=== PATIENT | female | born 1970 | race Caucasian/White ===

== ENCOUNTER 2024-11-25 21:28 | Outpatient (CLI) | payer OTHER, SELFPAY | END 2024-11-25 21:29 | disposition home or self-care (01) | LOC: AMB 11-28 15:51 | PROVIDERS: Visit Provider Emergency Medicine | DX: R55 Syncope and collapse (principal); S09.90XA Unspecified injury of head, initial encounter; W18.39XA Other fall on same level, initial encounter; Y92.89 Other specified places as the place of occurrence of the external cause | CPT/HCPCS: A0425; A0429 ==

== ENCOUNTER 2024-11-25 21:55 | Emergency (ER) | payer OTHER, SELFPAY ==
--- OUTSIDE RECORDS SUMMARY | 2021-02-11 23:30 | XMS_ITS | Continuity of Care Document ---
Author Organization [facility] Address [address] [address] [place] [address] Phone Care Team Providers Care Brick Paver Name Role Phone No Information Unavailable Unavailable Advance Directives Directive Yes / No Effective Date File Name No Information Encounters Encounter Description Practice Location Reason(s) For Visit Diagnoses Date Provider Providers Copied on Encounter [facility], [address] [address], [place], [place], [id number], [place] tel:[phone] No Information No Information Family History Family Member Type Diagnosis Age At Onset No Information Payers Payer name Insurance type Covered libertarian ID Authoriza tion(s) No Information Social History Type Description Quantity Date Captured Comments Sex Female Smoking Status No Information Chief Complaint And Reason For Visit No Information Reason For Referral Reason For Referral No Information History Of Present Illness Encounter Date Complaint History Of Prese nt Illness No Information Functional Status Date Functional Assessmen t No Information Instructions Date Instruction Additional Infor mation No Information Assessments Type Assessment Date No Information Patient Care Teams Name Effective Dates (start - stop) Status Members No Information
--- OUTSIDE RECORDS SUMMARY | 2021-02-11 23:30 | XMS_ITS | Continuity of Care Document ---
Author Organization [facility] Address [address] [address] [place] [address] Phone Care Team Providers Care Corrections Cadet Name Role Phone No Information Unavailable Unavailable Advance Directives Directive Yes / No Effective Date File Name No Information Encounters Encounter Description Practice Location Reason(s) For Visit Diagnoses Date Provider Providers Copied on Encounter [facility], [address] [address], [place], [place], [id number], [place] tel:[phone] No Information No Information Family History Family Member Type Diagnosis Age At Onset No Information Payers Payer name Insurance type Covered alliance party ID Authoriza tion(s) No Information Social History [...]
--- OUTSIDE RECORDS SUMMARY | 2024-11-25 21:56 | XMS_ITS | Clinical Summary ---
Author Organization [facility] Address [address] [place] [address] Care Team Providers Care Echocardiologist Name Role Phone Gopi Giraldo MD Primary Care Provider [phone] Allergies No known active allergies Medications tiZANidine (ZANAFLEX) 2 MG tablet Take 2 mg by mouth every 6 hours as needed for muscle spasms Active B Complex Vitamins (B-COMPLEX/B-12 PO) Take 1 tablet by mouth daily Active B Bjxpgud-U-Aucqn n-D-Zinc-FA (VITAL-D RX PO) Take 1 tablet by mouth daily Active BL MAGNESIUM CITRATE PO Take 1 capsule by mouth daily Active HYDROcodone-richard taminophen (NORCO) 5-325 MG tabletIndicatio ns:Postoperativ e pain Take 1 tablet by mouth every 4 hours as needed for moderate to severe pain 10 tablet 06/18/2022 Active senna-docusate (SENOKOT-S/MARK COLACE) 8.6-50 MG tabletIndicatio ns:Postoperativ e pain Take 1-2 tablets by mouth 2 times daily 20 tablet 06/18/2022 Active Active Problems Problem Noted Date Diagnosed Date Incarcerated left inguinal hernia 2022 Social History Tobacco Use Types Packs/Day Years Used Date Smoking Tobacco: Never Smokeless Tobacco: Never Alcohol Use Standard Drinks/Week Comments Yes 0 (1 standard drink = 0.6 oz pur e alcohol) Adolescent Education Answer Date Record ed Getting School Help Needed Not on file 11/22 Comments No Sex and Gender Information Value Date Recorded Sex Assigned at Not on file 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 Gender Identity Not on file Sexual Orientation Not on file Last Filed Vital Signs Vital Sign Reading Time Taken Comments Blood Pressure 115/80 06/18/2022 7:15 PM CDT Pulse 80 06/18/2022 7:15 PM CDT Temperature 36.1 C (97 F) 06/18/2022 7:15 PM CDT Respiratory Rate 14 06/18/2022 7:15 PM CDT Oxygen Saturation 96% 06/18/2022 7:15 PM CDT Inhaled Oxygen Concentration - - Weight 55.8 kg (123 lb 1.6 oz) 06/18/2022 11:30 AM CDT Height 175.3 cm (5' 9) 06/18/2022 11:30 AM CDT Body Mass Index 18.18 06/18/2022 11:30 AM CDT Plan of Treatment Health Maintenance Due Date Last Done Comments ADVANCE CARE PLANNING 1971 ANNUAL REVIEW OF HM ORDERS 1971 CT COLONOGRAPHY 1971 DIABETES SCREENING 1971 FIT 1971 FLEX SIG 1971 MAMMO SCREENING 1971 sDNA (Cologuard) 1971 YEARLY PREVENTIVE VISIT 06/10/1974 COLONOSCOPY 06/10/1981 COLORECTAL CANCER SCREENING 06/10/1981 HIV SCREENING 06/10/1986 HEPATITIS C SCREENING 06/10/1989 HEPATITIS B VACCINE (1 of 3 - + 3-dose series) 06/10/1990 PAP 06/10/1992 LIPID 2011 PNEUMOCOCCAL VACCINE 50+ YEARS (1 of 1 - PCV) 06/10/2021 ZOSTER VACCINE (1 of 2) 06/10/2021 PHQ-2 (once per calendar year) 2024 COVID-19 VACCINE (4 - 2024-2 6 season) 2024 01/09/2021, 04/19/2020, 03/22/2020 INFLUENZA VACCINE (#1) 2024 01/09/2009 DTAP/TDAP/TD VACCINE (2 - Td or Tdap) 07/21/2026 07/21/2016 HPV VACCINE (No Doses Required) Completed MENINGITIS VACCINE Aged Out No longer eligible based on patient's age to complete this topic Medical Devices Implanted Type Area Financial Representative Device Identifier Shelf Expiration Date Model / Serial / Lot Mesh Progrip Laparoscopic 5.9x3.9 Parietex Self-Fix [id number] - [id number] Implanted:Qty: 1 on 06/18/2022 by Charan Hamilton MD at [facility] Mesh Left: Iliac/Fem orals COVIDIEN 03/24/2025 [id number] / / [id number] Mesh Progrip Laparoscopic 5.9x3.9 Parietex Self-Fix [id number] - [id number] Implanted:Qty: 1 on 06/18/2022 by Charan Hamilton MD at [facility] Mesh Right: Iliac/Fem orals COVIDIEN 03/24/2025 [id number] / / [id number] Insurance [facility] [place] [id number] [facility] Care Teams Echocardiologist Relationship Specialty Start Date End Date Gopi Giraldo MD [address] [address] PCP - General estimator printing plate making 06/10/22
--- OUTSIDE RECORDS SUMMARY | 2024-11-25 21:56 | XMS_ITS | Clinical Summary ---
Author Organization [facility] Address [address] [place] [address] Care Team Providers Care Weigh Boss Name Role Phone Pcp, No Primary Care Provider Unavailabl e Allergies No known active allergies Medications tiZANidine (ZANAFLEX) 2 mg tabletIndication s:Cervical somatic dysfunction Take 1 tablet by mouth every 6 hours if needed for Muscle Spasm. 12 tablet 06/20/2018 Active Active Problems No known active problems Immunizations Immunization Administration Dates Next Due Tdap 07/21/2016 Family History Medical History Relation Name Comments Cancer-breast Paternal Aunt Cancer-colon Paternal Grandmother Cancer-ovarian No Family History Relation Name Status Comments Father Alive Mother Alive Paternal Aunt Paternal Grandmother Social History Tobacco Use Types Packs/Day Years Used Date Smoking Tobacco: Never Smokeless Tobacco: Never Tobacco Cessation:Counseling Given: No Alcohol Use Standard Drinks/Week Comments Yes 0 (1 standard drink = 0.6 oz pur e alcohol) PHQ-2 Answer Date Recorded PHQ-2 Score 0 06/20/2018 Social Connections Answer Date Recorded Frequency of Communication with Friends and Fami ly Not on file 06/17/2023 Financial Resource Strain Answer Date R ecorded Difficulty of Paying Living Expenses 3 06/15/2022 Difficulty of Paying Living Expenses Not on file 06/15/2022 Food Insecurity Answer Date Recorded Worried About Running Out of Food in the Last Ye ar 1 06/15/2022 Transportation Needs Answer Date Record ed Lack of Transportation (Medical) 1 06/15/2022 Housing Stability Answer Date Recorded Unable to Pay for Housing in the Last Year 1 06/15/2022 Comments No Sex and Gender Information Value Date Recorded Sex Assigned at Not on file 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 Gender Identity Not on file Sexual Orientation Not on file Obstetrics History Last Filed Vital Signs Vital Sign Reading Time Taken Comments Blood Pressure 124/72 06/15/2022 2:57 PM CDT Pulse 69 06/15/2022 2:57 PM CDT Temperature 37.3 C (99.1 F) 06/01/2018 1:22 PM CDT Respiratory Rate - - Oxygen Saturation 99% 06/15/2022 2:57 PM CDT Inhaled Oxygen Concentration - - Weight 57.2 kg (126 lb 1.6 oz) 06/15/2022 2:57 P M CDT Height 172.8 cm (5' 8.03) 06/15/2022 2:57 PM CD T Body Mass Index 19.16 06/15/2022 2:57 PM CDT Plan of Treatment Health Maintenance Due Date Last Done Comments HIV for age 15-65 06/10/1986 Hepatitis C screening for ag e 18-79 06/10/1989 Hepatitis B series for 19+ ( 1 of 3 - 19+ 3-dose series) 06/10/1990 Pap test for age 21-65 06/10/1992 Colonoscopy through age 75 06/10/2016 Lipids for age 45-75 06/10/2016 Mammogram for age 45-75 06/10/2016 Depression screening for age 12+ 06/21/2019 06/21/19 19, 07/07/2016 Pneumococcal series for age 50+ (1 of 1 - PCV) 06/10/2021 Zoster (shingles) series for age 50+ (1 of 2) 06/10/2021 BMI (ht and wt on same day) for age 18+ 06/16/2023 06/15/2022, 06/20/2018, 06/01/2018, Additional history exists COVID-19 vaccine series ( - 2023- season) 2024 Influenza Vaccine (#1) 2024 Tetanus booster 07/21/2026 07/21/2016 RSV vaccine for adults or (1 - 1-dose 75+ series) 06/10/2046 Care Teams Weigh Boss Relationship Specialty Start Date End Date Pcp, No . PCP - General 06/30/16
[2024-11-25 21:59] VITALS: BP 126/83; PULSE 82; RESP 18; TEMP 36.8; O2SAT 99; BMI 18.5
--- NOTE | 2024-11-25 22:05 | ED_ITS ---
HPI - Syncope General Time Seen by Provider: 22:05 Date Seen: 11/25/24 Chief Complaint: Syncope/Fainted Stated Complaint: syncope Time Seen by Provider: 11/25/24 22:04 Source: patient Mode of arrival: EMS History of Present Illness HPI narrative: Drea is a 54-year-old female who presents to the emergency department by EMS for evaluation of syncope. Patient reports that she was at a wedding tonight when she was talking to a friend when suddenly she started feeling very hot, had spotty vision, and felt as if she was going to pass out. Patient reports that she was going to sit down however the next thing she knew she landed on the ground. Per EMS patient did hit her head, did lose consciousness for a few seconds however then came back to it immediately. Patient reports that she is feeling back to normal now. states that earlier she was pale. No history of prior syncopal episodes in the past. Patient denies any headache, neck pain, back pain, chest pain, shortness of breath, abdominal pain, lower extremity edema or calf tenderness, no weakness, no paresthesias. Patient states she did have a long day today, went for a run for the 1st time in 6 months to a year, went to a , and then was at a wedding. Patient states she did have a glass a wine and an Old Fashion cocktail. Denies any history of heart problems, strokes, blood clots. Blood glucose prior to arrival was normal per EMS. Related Data Home Medications ?Medication ?Instructions ?Recorded ?Confirmed No Known Home Medications 11/26/2407/16 Allergies Allergy/AdvReac Type Severity Reaction Status Date / Time No Known Drug Allergies Allergy Verified 11/26/24 00:38 Review of Systems Narrative: Past medical history, past surgical history, medications, allergies, family history, and social history were reviewed with the patient. No additional pertinent items. A medically appropriate review of systems was performed with pertinent positives and negatives noted in HPI, all other systems negative. [facility] Medical History (Updated 11/26/24 @ 00:32 by Gabby Dumas MD) No significant past medical history Surgical History (Updated 11/25/24 @ 22:11 by Sanjay Farrar RN) No significant past surgical history Social History Smoking Status: Never smoker Second hand tobacco smoke exposure: No How often do you have a drink containing alcohol: monthly or less AUDIT-C Alcohol total score: 1 Non-prescribed substance use: denies use Exam Narrative: Exam Narrative: General: Afebrile, no acute distress HEENT: Normocephalic, atraumatic, conjunctiva normal. MMM Neck: non-tender, supple Cardio: regular rate. regular rhythm Resp: Normal work of breathing, no respiratory distress, lungs clear bilaterally, no wheezing, rhonchi, rales Chest/Back: no visual signs of trauma, no midline tenderness, no CVA tenderness Abdomen: soft, non distension, no tenderness, no peritoneal signs Neuro: alert and fully oriented. CN II-XII grossly intact. Grossly normal strength and sensation in all extremities. MSK: no deformities. Normal range of motion Integumentary/Skin: no rash visualized, normal color Psych: normal affect, normal behavior Const: Vital Signs, click to edit/add: Vital Signs - 24 hr 11/25/24 21:59 11/25/24 22:30 11/25/24 23:20 Temperature 98.2 F 98.2 F Pulse Rate [Right Pulse Oximeter] 82 78 Respiratory Rate 18 18 Blood Pressure [Le ft Upper Arm] 126/83 130/74 Pulse Oximetry 99 99 99 Oxygen Delivery Me thod Room Air Room Air 11/26/24 00:37 11/26/24 00:38 Temperature 98.2 F 98.2 F Pulse Rate [Right Pulse Oximeter] 74 74 Respiratory Rate 18 18 Blood Pressure [Le ft Upper Arm] 127/74 127/74 Pulse Oximetry 99 Oxygen Delivery Me thod Room Air Course Vital Signs Vital signs: Initial Vital Signs Temperature 98.2 F 11/25/24 21:59 Temperature Source Temporal Artery Scan 11/25/24 21:59 Pulse Rate 82 11/25/24 21:59 Respiratory Rate 18 11/25/24 21:59 Blood Pressure 126/83 11/25/24 21:59 Blood Pressure Mean 97 11/25/24 21:59 Blood Pressure Position Sitting 11/25/24 21:59 Pulse Oximetry 99 11/25/24 21:59 Oxygen Delivery Method Room Air 11/25/24 21:59 Vital Signs Temperature 98.2 F 11/25/24 21:59 Pulse Rate 82 11/25/24 21:59 Respiratory Rate 18 11/25/24 21:59 Blood Pressure 126/83 11/25/24 21:59 Pulse Oximetry 99 11/25/24 21:59 Oxygen Delivery Method Room Air 11/25/24 21:59 Temperature 98.2 F 11/26/24 00:38 Pulse Rate 74 11/26/24 00:38 Respiratory Rate 18 11/26/24 00:38 Blood Pressure 127/74 11/26/24 00:38 Pulse Oximetry 99 11/26/24 00:37 Oxygen Delivery Method Room Air 11/26/24 00:37 Medications Administered Medications: Discontinued Medications Generic Name Dose Route Start Last Admin Trade Name Cat PRN Reason Stop Dose Admin Sodium Chloride 1,000 mls @ 1,000 mls/hr 11/25/24 22:30 11/25/24 23:28 0.9 % Sodium Chloride 1000 Ml IV 11/25/24 23:29 Infused .Q1H RONI Infusion MDM - Syncope MDM Narrative Medical decision making narrative: Drea is a 54-year-old female who presents to the emergency department by EMS for evaluation of syncope. Upon arrival patient is nontoxic appearing, afebrile, no distress. Patient hemodynamically stable vital signs within normal limits. Patient with no tachycardia, no tachypnea, no respiratory distress or hypoxia. Cranial nerves 2-12 intact. Patient is not on chronic anticoagulation. Suspect likely vasovagal syncope. Plan for cardiac monitoring, EKG, comprehensive labs, and evaluation. I did consider CT of the head however patient is back to her baseline, no focal neurological deficits, is not on chronic anticoagulation, and [place] CT head rules negative. After shared decision making with patient, spouse, plan to hold off on CT imaging at this time. I reviewed EKG which demonstrates normal sinus rhythm with a ventricular rate of 78 beats per minute, normal axis, QTC 435, no acute ischemic change. No prior EKG to compare to. Comprehensive labs unremarkable with no leukocytosis white blood cell count 6.18, hemoglobin 12.9, lactic acide elevated at 2.9, no acute metabolic or electrolyte abnormality, no transaminitis, negative troponin. Patient was treated with 1 L IV fluid bolus on re-evaluation patient continues to be feeling well, at her baseline, patient able to ambulate to the bathroom without difficulty and denies any weakness, dizziness, chest pain, shortness of breath. Lactic acid remains unchanged at 2.9. Overall patient is nontoxic appearing a given patient's clinical presentation most likely secondary to vasovagal syncope (likely due to dehydration, heat, multiple stressors - /wedding). EKG and troponin within normal limits, low suspicious for ACS. Patient with no t achycardia, no hypoxia, no respiratory distress. Less likely PE. No evidence of acute infection. Low suspicious for CVA/seizure given no focal neurological deficit, patient was back to her normal self almost immediately, no significant elevation in lactic acid. I discussed results with patient, family, at this point I think it is reasonable to discharge home however I do recommend close outpatient follow-up with her primary care provider, and fever recurrent episodes were recommend further testing. Patient and spouse understand agrees the plan. Strict return precautions discussed. Lab Data Labs: Lab Results 11/25/24 11/25/24 Range/Units 22:23 23:40 WBC 6.18 (4.50-11.00) K/uL RBC 4.38 (4.00-5.20) m/uL Hgb 12.9 (12.0-16.0) gm/dL Hct 39.3 (33.0-51.0) % MCV 90 (80-100) fL MCH 30 (26-34) pg MCHC 33 (32-36) gm/dL RDW Coeff of Harvinder 12.6 (11.5-15.5) % Plt Count 252 (140-440) K/uL Neut % (Auto) 50.8 (42.0-72.0) % Lymph % (Auto) 38.8 (20-44) % [place] % (Auto) 8.6 (0.0-11.0) % Eos % (Auto) 1.3 (0.0-7.0) % Baso % (Auto) 0.3 (0.0-3.0) % Neut # (Auto) 3.14 (1.7-7.0) K/uL Lymph # (Auto) 2.40 (0.90-2.90) K/uL [place] # (Auto) 0.50 (0.00-0.90) K/UL Eos # (Auto) 0.08 (0.00-0.50) K/uL Baso # (Auto) 0.02 (0.00-0.30) K/uL Abs Immat Gran (auto) 0.01 (0.00-0.30) K/uL Imm/Tot Granulo (auto) 0.2 % Sodium 139 (135-149) mmol/L Potassium 4.4 (3.6-5.1) mmol/L Chloride 104 (96-114) mmol/L Carbon Dioxide 27 (20-32) mmol/L Anion Gap 8 (7-15) mEq/L BUN 21 (7-30) mg/dL Creatinine 1.0 (0.5-1.5) mg/dL Estimated Creat Clear 58.23 Estimated GFR 67 ml/min Glucose 123 H (60-115) mg/dL Lactate 2.9 H 2.9 H (0.5-1.9) mmol/L Calcium 9.4 (8.4-10.6) mg/dL Total Bilirubin 0.1 (0.1-1.5) mg/dL AST 34 (12-35) U/L ALT 19 (4-35) U/L Alkaline Phosphatase 93 (40-150) U/L Troponin I < 0.01 (0.01-0.04) ng/mL Total Protein 7.5 (6.0-8.3) g/dL Albumin 4.5 (3.3-5.0) g/dL Discharge Plan Discharge Clinical Impression: Syncope Patient Disposition: Home, Self-Care Condition: Stable Instructions: Syncope (ED) Additional Instructions: Please follow-up with your primary care provider in the next 3-5 days for further evaluation and follow-up. Please call to schedule appointment. Please rest, drink plenty of fluids. Please do activities as tolerated. Return to the emergency department if you develop chest pain, difficulty breathing, weakness, dizziness, or any worsening symptoms. It was a pleasure taking care of you today. We hope you feel better soon Prescriptions: No Action No Known Home Medications Follow Up/Referrals: Provider,Not a Local [Primary Care Provider, Family Practice] Stand Alone Forms: [facility] Info Instructions
[2024-11-25 22:28] LABS: Hematocrit* 39.3 % (33.0-51.0); Hemoglobin* 12.9 gm/dL (12.0-16.0); Immature Granulocytes Abs Auto 0.01 K/uL (0.00-0.30); Immature Granulocytes Pct Auto 0.2 %; Lymphocytes Absolute Auto 2.40 K/uL (0.90-2.90); Mean Corpuscular HGB Conc 33 gm/dL (32-36); Mean Corpuscular Hemoglobin 30 pg (26-34); Mean Corpuscular Volume 90 fL (80-100); RDW Coefficient of Variation % 12.6 % (11.5-15.5); Red Blood Count* 4.38 m/uL (4.00-5.20); White Blood Count* 6.18 K/uL (4.50-11.00)
[2024-11-25 22:29] LABS: Lactate* 2.9 mmol/L (0.5-1.9)
[2024-11-25 22:30] VITALS: O2SAT 99
[2024-11-25 22:30] LABS: Slide Review Reflex No
[2024-11-25 22:48] LABS: Albumin* 4.5 g/dL (3.3-5.0); Chloride* 104 mmol/L (96-114); Potassium* 4.4 mmol/L (3.6-5.1); Sodium* 139 mmol/L (135-149)
[2024-11-25 22:51] LABS: Alanine Aminotransferase* 19 U/L (4-35); Alkaline Phosphatase* 93 U/L (40-150); Anion Gap 8 mEq/L (7-15); Aspartate Amino Transferase* 34 U/L (12-35); Bilirubin Total* 0.1 mg/dL (0.1-1.5); Blood Urea Nitrogen* 21 mg/dL (7-30); Carbon Dioxide* 27 mmol/L (20-32); Creatinine* 1.0 mg/dL (0.5-1.5); Est. Creatinine Clearance* 58.23; Estimated Glomerular Filt Rate 67 ml/min; Total Protein* 7.5 g/dL (6.0-8.3)
[2024-11-25 22:52] LABS: Calcium* 9.4 mg/dL (8.4-10.6); Glucose* 123 mg/dL (60-115)
[2024-11-25 23:20] VITALS: BP 130/74; PULSE 78; RESP 18; TEMP 36.8; O2SAT 99
[2024-11-25 23:53] LABS: Lactate* 2.9 mmol/L (0.5-1.9)
--- OUTSIDE RECORDS SUMMARY | 2024-11-26 00:28 | XMS_ITS | Clinical Summary ---
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 PCP - General 06/30/16
--- OUTSIDE RECORDS SUMMARY | 2024-11-26 00:28 | XMS_ITS | Clinical Summary ---
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 Gender Identity Not on file Sexual Orientation [...] this topic Medical Devices Implanted Type Area Motion Study Technician Device Identifier Shelf Expiration Date Model / Serial / Lot Mesh Progrip Laparoscopic 5.9x3.9 Parietex Self-Fix [id number] - [id number] Implanted:Qty: 1 on 06/18/2022 by Charan Hamilton MD at [facility] Mesh Left: Iliac/Fem orals COVIDIEN 03/24/2025 [id number] / / [id number] Mesh Progrip Laparoscopic 5.9x3.9 Parietex Self-Fix [id number] - [id number] Implanted:Qty: 1 on 06/18/2022 by Charan Hamilton MD at [facility] Mesh Right: Iliac/Fem orals COVIDIEN 03/24/2025 [id number] / / [id number] Insurance [facility] [place] [id number] [facility] Care Teams Auto Mechanic Apprentice Relationship Specialty Start Date End Date Gopi Giraldo MD [address] [address] PCP - General post production assistant 06/10/22
[2024-11-26 00:37] VITALS: BP 127/74; PULSE 74; RESP 18; TEMP 36.8; O2SAT 99
[2024-11-26 00:38] VITALS: BP 127/74; PULSE 74; RESP 18; TEMP 36.8
== END 2024-11-26 00:39 | disposition home or self-care (01) ==
PROVIDERS: Emergency Provider Emergency Medicine
DX: R55 Syncope and collapse (principal)
CPT/HCPCS: 36415; 80053; 83605; 84484; 85025; 93005; 94761; 96360; 99284; 99285; J7030